=== PATIENT | female | born 1980 | race Caucasian/White ===

== ENCOUNTER → 2016-05-27 | Outpatient (CLI) | payer BC ==
[~2016-05-27] MED LIST: ACET-1311 PO; ACET-749 PO; IBUP-1050 PO; PRENTAB26 PO
== END | disposition home or self-care (01) ==
LOC: C.LABSPEC 11:13
PROVIDERS: ATTEND Nurse Practitioner Adult Health
DX: R39.15 Urgency of urination (principal)

== ENCOUNTER → 2017-04-04 | Outpatient (CLI) | payer OTHER | END | disposition home or self-care (01) | LOC: C.PAPS 15:40 | PROVIDERS: ATTEND Physician Assistant | DX: Z01.419 Encounter for gynecological examination (general) (routine) without abnormal findings (principal) ==

== ENCOUNTER 2019-10-30 14:10 | Inpatient (IN) ==
[2019-10-30] MEDS ORDERED: OXYTOCIN 30 UNITS/500 ML BAG IV PRN ×2 (14:59→19:30)
[2019-10-30 15:25] LABS: Hematocrit (blood only) 42.3 % (37-47); Hemoglobin 14.8 g/dL (12.0-16.0); Mean Corpuscular Hemoglobin 32.4 pg (25-34); Mean Corpuscular Volume 92.6 fL (80-100); Mean Platelet Volume 10.3 fL (7.4-10.4); Platelet Count 183 K/uL (130-400); RDW Standard Deviation 44.1 fL (36.4-46.3); Red Blood Count 4.57 M/uL (4.2-5.4); White Blood Count 11.95 K/uL (4.8-10.8)
[2019-10-30] MEDS: LACTATED RINGER'S 1,000 ML IV PRN ×2 (15:31→16:59)
[2019-10-30] MEDS ORDERED: BUPIVACAINE 0.25% 30 ML VIAL ONE (15:32)
[2019-10-30] MEDS ORDERED: ePHEDrine sulfate 50 MG/ML AMP ONE (15:32)
[2019-10-30] MEDS ORDERED: fentaNYL citrate 100 MCG/2 ML VIAL ONE (15:33)
[2019-10-30] MEDS ORDERED: fentaNYL 2MCG/ML ROPIV 1.25MG/ML 100 ML BAG EPI ONE (15:33)
[2019-10-30] MEDS ORDERED: ePHEDrine sulfate 50 MG/ML AMP IV PRN (16:22)
[2019-10-30] MEDS ORDERED: NALOXONE HCL 1 MG in SODIUM CHLORIDE 0.9% 1000ML 1,000 ML IV PRN (16:22)
[2019-10-30] MEDS ORDERED: DiphenhydrAMINE HCL 50 MG/ML VIAL IV PRN (16:22)
[2019-10-30] MEDS ORDERED: fentaNYL 2MCG/ML ROPIV 1.25MG/ML 100 ML BAG EPI PRN (16:22)
[2019-10-30] MEDS ORDERED: NALOXONE HCL 0.4 MG/1 ML VIAL/CARP IV PRN (16:22)
--- NOTE | 2019-10-30 17:00 | Anesthesiology Consultation ---
Date of Service October 30, 2019 Assessment & Plan Chart Review Chart Review: Acceptable Risk for Labor Epidural Consults Requested none History Height/Weight Height: 5 ft 5 in Weight: 75.389 kg Allergies Allergy/AdvReac Type Severity Reaction Status Date / Time No Known Allergies Unverified 04/21/19 18:03 Medications Home Medications Medication Instructions Recorded Confirmed Last Taken amoxicillin 500 mg capsule 500 mg PO TID 04/21/19 04/21/19 Unknown Active Medications Generic Name Dose Route Start Last Admin Trade Name Freq PRN Reason Stop Dose Admin Lactated Ringer's 1,000 mls @ 125 mls/hr 10/30/19 14:59 10/30/19 16:59 Lr IV 11/01/19 14:58 999 mls/hr .Q8H PRN Administration L&D Protocol Protocol Past Medical History Medical History Abnormal uterine bleeding (AUB) ADD (attention deficit disorder) History of varicella Influenza B Migraine Past Family History Family History Grandmother (Paternal) Ovarian cancer Denies family history of Prostate cancer Myocardial infarction Breast cancer Colorectal cancer Past Surgical History Surgical History No pertinent past surgical history Social History Smoking Status: Never smoker Hx Alcohol Use: No Hx Substance Use: No substance use type: does not use Physical Exam Vital Signs Last Vital Signs Temp 36.7 C 10/30/19 14:21 Pulse 111 H 10/30/19 16:59 BP 111/65 10/30/19 16:59 Pulse Ox 98 10/30/19 16:54 Testing Laboratory Results 10/30/19 15:14
[2019-10-30] MEDS ORDERED: METHYLERGONOVINE MALEATE 0.2 MG/ML AMP ONE (18:49)
[2019-10-30] MEDS ORDERED: METHYLERGONOVINE MALEATE 0.2 MG/ML AMP IM ONE (19:30)
[2019-10-30] MEDS ORDERED: BENZOCAINE 20% AER SPR 82.5 GM CAN EXT PRN (19:30)
[2019-10-30] MEDS ORDERED: DIPHTHERIA/TETANUS/PERTUSSIS 0.5 ML SYR/VIAL IM ONE (19:30)
[2019-10-30] MEDS ORDERED: bisacodyL 10 MG SUPP PR PRN (19:30)
[2019-10-30] MEDS ORDERED: SUPERCREAM 0.870% 15 GM JAR EXT PRN (19:30)
[2019-10-30] MEDS ORDERED: HYDROCORTISONE ACETATE 25 MG SUPP PR PRN (19:30)
[2019-10-30] MEDS ORDERED: miSOPROStoL 200 MCG TAB PR ONE (19:30)
[2019-10-30] MEDS: IBUPROFEN 600 MG TAB PO PRN (20:26)
[2019-10-30] MEDS: ACETAMINOPHEN 325 MG TAB PO PRN (21:07)
[2019-10-30] MEDS: DOCUSATE SODIUM 100 MG CAP PO SCH (21:18)
--- NOTE | 2019-10-30 23:23 | Delivery Summary ---
DATE OF OPERATION: 10/30/2019 The patient delivered a live infant female in left occiput anterior presentation. There was no nuchal cord. Infant was delivered, placed on mother's abdomen. Delayed cord clamp was performed after 1 minute. Cord blood is obtained. Placenta is spontaneously delivered. Inspection of the placenta shows a normal looking placenta with 3-vessel cord. Inspection of the perineum shows no laceration or tears. Estimated blood loss is 450 mL. Baby and mother are doing well in recovery. All instruments were removed from the vagina including sponges and retractors. Infants weight and is in the pediatric records. I attest to the content of the Intraoperative Record and any orders documented therein. Any exceptions are noted below. MTDD
[2019-10-31] MEDS: IBUPROFEN 600 MG TAB PO PRN ×4 (03:33→15:33)
[2019-10-31] MEDS: ACETAMINOPHEN 325 MG TAB PO PRN ×2 (06:18→13:57)
[2019-10-31 06:29] LABS: Hemoglobin 13.6 g/dL (12.0-16.0); Mean Corpuscular Hemoglobin 32.5 pg (25-34); Mean Corpuscular Volume 95.7 fL (80-100); Mean Platelet Volume 10.4 fL (7.4-10.4); Platelet Count 164 K/uL (130-400); RDW Coefficient of Variation 13.1 % (11.5-14.5); RDW Standard Deviation 45.2 fL (36.4-46.3); Red Blood Count 4.18 M/uL (4.2-5.4); White Blood Count 14.56 K/uL (4.8-10.8)
[2019-10-31] MEDS: DOCUSATE SODIUM 100 MG CAP PO SCH (07:35)
[2019-10-31] MEDS ORDERED: PRENATAL VITAMIN 1 TAB PO SCH (08:00)
--- NOTE | 2019-10-31 08:22 | Anesthesia Procedure Note ---
Date of Service October 31, 2019 Anesthesia Post Epidural Note Vital Signs Vital Signs: Temp Pulse Resp BP Pulse Ox 36.6 C 64 16 106/74 97 10/31/19 08:03 10/31/19 08:03 10/31/19 08:03 10/31/19 08:03 10/31/19 03:30 Pain Intensity Bilateral Abdomen: Pain Intensity: 4 Episiotomy/Laceration: Pain Intensity: 7 Notes Mental Status: alert / awake / arousable and participated in evaluation Nausea / Vomiting: adequately controlled Pain: adequately controlled Airway Patency, RR, SpO2: stable & adequate BP & HR: stable & adequate Hydration State: stable & adequate Neuraxial Anesthesia: was administered and sensory block is resolving Anesthetic Complications: no major complications apparent Epidural: Removed without complications and With tip intact
--- NOTE | 2019-10-31 11:00 | Obstetrical Progress Note ---
Date of Service October 31, 2019 Assessment & Plan (1) Normal course: PPD #1 Pt doing well Wishes to be discharged home Subjective Ambulation: ambulating normally Voiding: no voiding problems Passing Gas:: Yes Diet Tolerance:: regular diet Lochia:: Small Feeding Type:: breast feeding Review of Systems All systems reviewed & are unremarkable except as noted in HPI & below Physical Exam Constitutional WD/WN, vitals as above well developed and well nourished Eyes PERRL, conjunctivae normal, anicteric sclerae Neck trachea midline, no thyromegaly Respiratory normal respiratory effort, lungs clear to auscultation Auscultation: no crackles, no rales and no wheezes Cardiovascular RRR, no murmur, no edema Gastrointestinal (Abdomen) normal bowel sounds, soft, nontender, no hepatosplenomegaly Uterus is below umbilicus Musculoskeletal no cyanosis or clubbing, extremities motor strength 5/5 Skin no rashes, warm and dry Neurologic patellar DTR's 2+ bilat, sensation intact Psychiatric A+Ox3, euthymic affect Genitourinary normal external appearance Results & Data ([facility]) Vital Signs (Past 12 Hours) Vital Signs Temp Pulse Pulse Resp BP Pulse Ox 10/31/19 08:03 36.6 C 64 16 106/74 10/31/19 03:30 36.7 C 71 16 105/68 97 10/30/19 23:20 37.3 C 90 16 106/68 98
[2019-10-31] MEDS ORDERED: bisacodyL 5 MG TABEC PO SCH (20:00)
== END 2019-10-31 20:10 | disposition home or self-care (01) | DRG 807 ==
LOC: 4S1 14:10 → OPB 14:10 → 4S1 14:59 → 4S2 22:01